=== PATIENT | female | born 1955 | race Caucasian/White ===

== ENCOUNTER → 2021-06-20 12:45 | Outpatient (CLI) | payer MEDICARE, OTHER, SELFPAY ==
--- NOTE | 2021-06-20 | DI.MRI.S_ITS ---
PROCEDURE: MR ANKLE LT WO CON INDICATIONS: LEFT ACHILLES TENDON PAIN TECHNIQUE: Noncontrast sagittal T1 spin echo and T2 fast spin echo with fat saturation, axial proton density fast spin echo and T2 fast spin echo with fat saturation, coronal T1 spin echo and T2 fast spin echo with fat saturation through the ankle/hindfoot. COMPARISON: [facility], MR, ANKLE W&WO CONTRAST, 07/02/2014, 17:37. FINDINGS: Image quality: Excellent. Bones and joints: No bone marrow contusions or fractures. Chronic appearing subchondral cystic changes are seen in the posterior tibial plafond and with mild irregularity of the overlying articular cartilage, mildly progressed when compared to the MRI from 07/02/2024. No hindfoot coalitions. Medial structures: The deep and superficial layers of the deltoid ligament appear intact. The spring ligament components are intact. The posterior tibialis, flexor digitorum longus, and flexor hallucis longus tendons are intact. The posterior tibial neurovascular bundle appears normal within the tarsal tunnel, without extrinsic mass effect. Lateral structures: The anterior talofibular, calcaneofibular, and posterior talofibular ligaments appear intact. The anterior and posterior tibiofibular ligaments appear intact. The peroneus longus and brevis tendons demonstrate normal location and morphology. The sinus tarsi demonstrates normal fatty signal, without edema, fibrosis, or cyst formation. Anterior structures: The tibialis anterior, extensor hallucis longus, and extensor digitorum longus tendons appear intact. The dorsal talonavicular ligament appears intact. Posterior and plantar structures: There is linear intrasubstance signal within the Achilles tendon. Mild focal fluid signal intensity is seen at the lateral aspect of the Achilles tendon insertion measuring 3 mm in transverse dimension. Focal osseous edema or cystic changes are seen in the posterior calcaneus. The proximal plantar fascia is intact. Medial and lateral bands of the plantar fascia are of normal thickness. No abductor digiti quinti muscle atrophy to suggest Cassidy neuropathy. IMPRESSION: 1. Small focal partial tear of the Achilles tendon at the lateral insertion. Additional longitudinal hyperintense signal within the substance of the Achilles tendon is suspicious for low-grade intrasubstance tearing. 2. Focal cartilage loss in the posterior tibial plafond and with chronic subchondral cystic changes. Dictated by: Thony Kinsey M.D. on 06/20/2021 at 14:40 Approved by: Thony Kinsey M.D. on 06/20/2021 at 14:57
== END ==
PROVIDERS: Referring Provider Physician Assistant; Visit Provider Physician Assistant
DX: S86.012A Strain of left Achilles tendon, initial encounter (principal); M25.572 Pain in left ankle and joints of left foot
CPT/HCPCS: 73721